=== PATIENT | female | born 1955 | race Caucasian/White ===

== ENCOUNTER 2024-10-02 01:48 | Emergency (ER) | payer MEDICARE, OTHER ==
[~2024-10-02] VITALS: Ht 165.1 cm; Wt 85.1 kg
[2024-10-02 03:34] VITALS: BP 134/88
== END 2024-10-02 03:29 | disposition home or self-care (01) ==
LOC: ED 01:48
DX: T84.84XA Pain due to internal orthopedic prosthetic devices, implants and grafts, initial encounter (principal); Y79.8 Miscellaneous orthopedic devices associated with adverse incidents, not elsewhere classified; Z88.0 Allergy status to penicillin
CPT/HCPCS: 99283